=== PATIENT | female | born 1965 | race Caucasian/White ===

== ENCOUNTER → 2017-02-18 | Outpatient (CLI) | payer OTHER ==
[~2017-02-18] MED LIST: ASPI81TA28 PO; ATEN25TA PO; CHOL1000 PO; CHOL100027 PO; CYCL10TA6 PO; GLC/500 PO; HYDR25TA4 PO; LISI-461 PO; MULT-506 PO; MULT-513 PO; MULT-580 PO; NAPR-1169 PO; OMEGCAP2 PO; OXYC1TAB3 PO
[2017-02-18 09:43] LABS: BASO % 0.5 %; BASO ABS # 0.04 K/uL (0-0.2); COMPLETE YES; EOS % 4.9 %; HEMATOCRIT 42.7 % (37-47); IG% 0.6 %; LYMPH % 37.9 %; LYMPH ABS # 2.94 K/uL (1.2-3.4); MEAN CORPUSCULAR HEMOGLOBIN 28.8 pg (25-34); MEAN CORPUSCULAR HGB CONC 32.3 g/dl (32-36); MEAN PLATELET VOLUME 10.2 fL (7.4-10.4); MONO % 8.8 %; NEUT % 47.3 %; PLATELET COUNT 249 K/uL (130-400); WHITE BLOOD COUNT 7.76 K/uL (4.8-10.8)
[2017-02-18 09:52] LABS: BLOOD UREA NITROGEN 27 mg/dl (7-18); BUN/CREATININE RATIO 45.5 (10-20); CALCIUM 8.8 mg/dl (8.5-10.1); CARBON DIOXIDE 29 mmol/L (21-32); CHLORIDE 108 mmol/L (98-107); CHOLESTEROL 225 mg/dl (0-200); GLUCOSE 91 mg/dl (70-99); POTASSIUM 4.1 mmol/L (3.5-5.1); SODIUM 143 mmol/L (136-145); TRIGLYCERIDES 193 mg/dl (0-150); VERY LOW DENSITY LIPOPROT CALC 39 mg/dl
[2017-02-18 10:03] LABS: CHOLESTEROL/HDL RATIO 4.9; HDL CHOLESTEROL 46 mg/dl; LDL CHOLESTEROL CALCULATED 140 mg/dl
== END | disposition home or self-care (01) ==
LOC: C.LAB1850 07:06
PROVIDERS: ATTEND Internal Medicine
DX: I10 Essential (primary) hypertension (principal); Z86.39 Personal history of other endocrine, nutritional and metabolic disease; G47.30 Sleep apnea, unspecified; E78.5 Hyperlipidemia, unspecified

== ENCOUNTER → 2017-02-27 | Outpatient (CLI) | payer OTHER ==
--- NOTE | 2017-02-27 15:09 | MAMMOGRAPHY REPORT ---
BILATERAL DIGITAL SCREENING MAMMOGRAM TOMOSYNTHESIS WITH CAD: 02/27/2017 CLINICAL HISTORY: Routine screening. Patient has no complaints. TECHNIQUE: Breast tomosynthesis in addition to standard 2D mammography was performed. Current study was also evaluated with a Computer Aided Detection (CAD) system. COMPARISON: Comparison is made to exams dated: 02/26/2016 mammogram, 02/22/2015 mammogram, 01/26/2014 mamm ogram, 01/24/2013 mammogram - [facility], 03/27/2009, and 03/20/2009. BREAST COMPOSITION: There are scattered areas of fibroglandular density in both breasts. FINDINGS: No suspicious masses, calcifications, or areas of architectural distortion are noted in ei ther breast. There has been no significant interval change compared to prior exams. Bilateral benign -appearing calcifications are stable compared to prior exams. IMPRESSION: ACR BI-RADS CATEGORY 2: BENIGN There is no mammographic evidence of malignancy. A 1 year screening mammogram is recommended. The pa tient will receive written notification of the results. Approximately 10% of breast cancers are not detected with mammography. A negative mammographic report should not delay biopsy if a clinically suggestive mass is present. Deborah Montes M.D. /:02/27/2017 12:41:36 Residential Real Estate Appraiser: Danielle Ross, [facility] letter sent: Normal 1/2 BI-RADS Code: ACR BI-RADS Category 2: Benign
== END | disposition home or self-care (01) ==
LOC: C.MAMM 09:12
PROVIDERS: ATTEND Internal Medicine
DX: Z12.31 Encounter for screening mammogram for malignant neoplasm of breast (principal)

== ENCOUNTER 2017-04-03 18:54 | Emergency (ER) | payer OTHER ==
[~2017-04-03] VITALS: Ht 165.1 cm; Wt 94.4 kg
[~2017-04-03 18:54] MED LIST changes: -ASPI81TA28 PO; -CHOL1000 PO; -CYCL10TA6 PO; -MULT-513 PO; -OXYC1TAB3 PO
[2017-04-03 19:15] VITALS: TEMP 36.4; Ht 165.1 cm; Wt 94.4 kg
[2017-04-03] MEDS ORDERED: OXYCODONE HCL IR 5 MG TAB (IMMEDIATE RELEASE) PO STA (20:09)
[2017-04-03] MEDS ORDERED: NAPR-1169 PO (20:31)
[2017-04-03] MEDS ORDERED: LISI-461 PO (20:31)
[2017-04-03] MEDS ORDERED: CHOL1000 PO (20:31)
[2017-04-03] MEDS ORDERED: CYCL10TA6 PO ×2 (20:31→21:48)
[2017-04-03] MEDS ORDERED: ASPI81TA28 PO (20:31)
[2017-04-03] MEDS ORDERED: MULT-513 PO (20:31)
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
[2017-04-03] MEDS ORDERED: CYCLOBENZAPRINE HCL 10 MG TAB PO STA (21:40)
[2017-04-03] MEDS ORDERED: OXYCODONE IR HOME PACK PO ONE (21:45)
[2017-04-03] MEDS ORDERED: FLEXERIL HOME PACK 10 MG VIAL PO ONE (21:45)
[2017-04-03] MEDS ORDERED: OXYC1TAB3 PO (21:48)
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
[2017-04-03 22:06] VITALS: BP 121/88; PULSE 79; O2SAT 98
== END 2017-04-03 22:07 | disposition home or self-care (01) ==
LOC: C.EDB 18:55 → C.EDD 22:07
DX: S16.1XXA Strain of muscle, fascia and tendon at neck level, initial encounter (principal); V49.40XA Driver injured in collision with unspecified motor vehicles in traffic accident, initial encounter; Y92.488 Other paved roadways as the place of occurrence of the external cause; Y93.89 Activity, other specified; I10 Essential (primary) hypertension; E11.9 Type 2 diabetes mellitus without complications; Z79.82 Long term (current) use of aspirin; Z79.899 Other long term (current) drug therapy

== ENCOUNTER → 2017-06-05 | Outpatient (CLI) | payer OTHER ==
[~2017-06-05] MED LIST changes: +ASPI81TA28 PO; -ATEN25TA PO; +CHOL1000 PO; -CHOL100027 PO; +CYCL10TA6 PO; -GLC/500 PO; -HYDR25TA4 PO; -MULT-506 PO; +MULT-513 PO; -MULT-580 PO; -OMEGCAP2 PO; +OXYC1TAB3 PO
== END | disposition home or self-care (01) ==
LOC: C.PAPS 11:47
PROVIDERS: ATTEND Obstetrics & Gynecology
DX: Z12.4 Encounter for screening for malignant neoplasm of cervix (principal)

== ENCOUNTER → 2017-08-05 | Outpatient (CLI) | payer OTHER | END | disposition home or self-care (01) | LOC: C.LAB1850 15:25 | PROVIDERS: ATTEND Obstetrics & Gynecology | DX: N93.9 Abnormal uterine and vaginal bleeding, unspecified (principal) ==

== ENCOUNTER → 2017-09-02 | Outpatient (CLI) | payer OTHER ==
--- NOTE | 2017-09-02 11:03 | DIAGNOSTIC IMAGING REPORT ---
R KNEES, AP STANDING, L KNEES, AP STANDING CLINICAL HISTORY: Fall. Bilateral knee pain. COMPARISON STUDY: None. FINDINGS: Single standing view of the right knee and a single standing view of the left knee. No fracture or dislocation within the right or left knee. Mild right and moderate left medial cartilage space narrowing. There are associated small marginal osteophytes. Soft tissues appear unremarkable. No radiopaque foreign bodies. IMPRESSION: Mild right and moderate left medial compartment osteoarthritis within the knees. No fracture or dislocation. Electronically signed by: Abhi Whipple M.D. 09/02/2017 11:01 AM Dictated Date/Time: 09/02/2017 10:59 AM
[2017-09-02 12:26] LABS: HEMOGLOBIN A1C 5.5 % (4.5-5.6)
[2017-09-02 12:33] LABS: ALBUMIN 3.8 gm/dl (3.4-5.0); ALT/SGPT 30 U/L (12-78); AST/SGOT 22 U/L (15-37); BLOOD UREA NITROGEN 20 mg/dl (7-18); CALCIUM 8.7 mg/dl (8.5-10.1); CARBON DIOXIDE 30 mmol/L (21-32); CHOLESTEROL 206 mg/dl (0-200); CREATININE 0.63 mg/dl (0.60-1.20); GLUCOSE 107 mg/dl (70-99); POTASSIUM 4.1 mmol/L (3.5-5.1); SODIUM 139 mmol/L (136-145); TOTAL PROTEIN 7.3 gm/dl (6.4-8.2)
[2017-09-02 12:42] LABS: ALKALINE PHOSPHATASE 86 U/L (45-117); LDL CHOLESTEROL CALCULATED 123 mg/dl
== END | disposition home or self-care (01) ==
LOC: C.LAB1850 10:32
PROVIDERS: ATTEND Internal Medicine
DX: T14.8XXA Other injury of unspecified body region, initial encounter (principal); W19.XXXA Unspecified fall, initial encounter; Z86.39 Personal history of other endocrine, nutritional and metabolic disease; I10 Essential (primary) hypertension; M17.0 Bilateral primary osteoarthritis of knee

== ENCOUNTER 2019-08-18 09:44 | Inpatient (IN) ==
--- NOTE | 2019-07-12 10:46 | PAT Medication Instructions ---
Medication Instructions Date of Service July 12, 2019 Home Medications Medication Instructions Recorded metformin 500 mg tablet 500 mg PO BID #60 tab 03/31/19 multivitamin 1 tab PO DAILY naproxen 500 mg tablet 500 mg PO QAM metformin 500 mg tablet 500 mg PO BID aspirin 81 mg PO HS cholecalciferol (vitamin D3) [Vitamin D3] 1,000 unit PO DAILY lisinopril 10 mg PO QAM multivitamin [Uhrf-Tlqs-Onwgr] 2 tab PO DAILY paroxetine HCl 20 mg PO HS vitamin B complex 1 tab PO DAILY ASK your surgeon for instructions naproxen 500 mg tablet 500 mg PO QAM DO NOT take the morning of surgery multivitamin 1 tab PO DAILY metformin 500 mg tablet 500 mg PO BID cholecalciferol (vitamin D3) [Vitamin D3] 1,000 unit PO DAILY lisinopril 10 mg PO QAM multivitamin [Owlz-Mpeh-Wdzja] 2 tab PO DAILY vitamin B complex 1 tab PO DAILY Take evening before surgery metformin 500 mg tablet 500 mg PO BID aspirin 81 mg PO HS paroxetine HCl 20 mg PO HS Other Notes If you have any questions please call us at [phone] or [phone] or [phone] or [phone]
--- NOTE | 2019-07-13 08:33 | Anesthesiology Consultation ---
Date of Service July 13, 2019 Assessment & Plan (1) Encounter for pre-operative examination: - Check BSG AM DOS Chart Review Chart Review: Acceptable Risk for Surgery and Patient seen in Pre Admission Testing Teaching & Discussion Pre-Anesthesia Teaching/Discussion Notes: Instructed NPO after midnight before surgery,except medications with 15 cc of water. Medication instructions provided according to the PAT guidelines. History Surgery Operation Date: 08/18/19 09:20 Proposed Procedures p Left Total Knee Arthroplasty - Joss Cody MD Height/Weight Height: 5 ft 5 in Weight: 111.1 kg Allergies Allergy/AdvReac Type Severity Reaction Status Date / Time grass pollen Allergy Intermediate Hives Verified 07/07/19 15:07 oxycodone AdvReac Mild GI upset Verified 07/12/19 10:44 rosuvastatin AdvReac Mild Leg Verified 07/12/19 10:44 cramping Medications Home Medications Medication Instructions Recorded Confirmed Last Taken multivitamin 1 tab PO DAILY 03/01/19 07/07/19 Unknown naproxen 500 mg tablet 500 mg PO QAM #180 tab 03/01/19 07/07/19 Unknown metformin 500 mg tablet 500 mg PO BID #60 tab 03/31/19 07/07/19 Unknown aspirin 81 mg PO HS 07/07/19 07/07/19 Unknown cholecalciferol (vitamin D3) 1,000 unit PO DAILY 07/07/19 07/07/19 Unknown [Vitamin D3] lisinopril 10 mg PO QAM 07/07/19 07/07/19 Unknown multivitamin-folic acid-biotin 2 tab PO DAILY 07/07/19 07/07/19 Unknown [Kfcj-Iujc-Fuqtx (co-[id number])] paroxetine HCl 20 mg PO HS 07/07/19 07/07/19 Unknown vitamin B complex 1 tab PO DAILY 07/07/19 07/07/19 Unknown Past Medical History Medical History Anxiety and depression Bulging lumbar disc Dry eye syndrome eyes do not completely close during sleep GERD (gastroesophageal reflux disease) rare Hyperlipidemia Hypertension Morbid obesity Osteoarthritis Sleep apnea no device Temporomandibular joint disorder no locking Type 2 diabetes mellitus NIDDM Exercise / Class Metabolic Activity III < 4 Walking/Shop/Light housework Past Family History Family History Mother Family history of diabetes mellitus Father Family history of diabetes mellitus Grandmother Family history of diabetes mellitus Other Cervical cancer Depression Hypertension Thyroid disorder Past Surgical History Surgical History Cyst S/P REMOVAL (BUTTOCKS) H/O hand surgery LEFT HAND THUMB SURGERY H/O oral surgery 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7) H/O shoulder surgery RT SHOULDER History of bilateral tubal ligation History of carpal tunnel release RT/LEFT History of colonoscopy History of tonsillectomy and adenoidectomy History of tubal ligation Past Anesthesia History No Hx of Anesthesia Complications and No Family Hx of Anesthesia Complications History of PONV No Hx of PONV and No Hx of Motion Sickness Social History Smoking Status: Never smoker Do You Dip or Chew Tobacco: No Hx Alcohol Use: Yes alcohol intake frequency: holidays/special occasions only Hx Substance Use: No substance use type: does not use Review of Systems Rare reflux. Patient denies chest pain, shortness of breath, cough, wheezing, palpitations. Physical Exam Vital Signs VITALS BP 129/84 P 75 TEMP 98.2 SP02 95%RA RESP 16 PHYSICAL Full neck and c-spine range of motion. Full TMJ range of motion. TMD 3 finger breaths Mallampati Score 3 Dentition: intact Lungs: clear throughout to auscultation Cardiac: regular rate and rhythm, no murmurs noted Spine: normal Carotid arteries: negative bruit Extremities: no edema Testing Laboratory Results 07/13/19 09:01 07/13/19 09:01 PT 10.0 Seconds (9.0-12.0) 07/13/19 09:01 INR 1.0 (0.9-1.1) 07/13/19 09:01 APTT 25.0 Seconds (21.0-31.0) 07/13/19 09:01 Hemoglobin A1c 7.5 % (4.5-5.6) H 07/13/19 09:01 Blood Type O Positive 07/13/19 09:01 Antibody Screen NEGATIVE 07/13/19 09:01 *Surgeon office made aware of elevated hgba1c* Electrocardiogram Date: 07/13/19 NSR at 76bpm. *unconfirmed report* Chest X-Ray Date: 07/13/19 Findings: + NAD Stress Test Date: 11/20/15 Type: exercise LVEF 55%. 100% MPHR. 8.1 METS. No echographic segmental wall motion changes/stress EKG changes concerning for ischemia. Mild cLVH. Mild MR.
--- NOTE | 2019-07-13 09:34 | XRay Report ---
XR chest Pre-admission PA/Lat HISTORY: 54 years-old Female pat preoperative exam. No acute chest complaints COMPARISON: Chest radiograph 01/27/2018 TECHNIQUE: PA and lateral views of the chest FINDINGS: Cardiomediastinal and hilar silhouettes are within normal limits. There is no pneumothorax, pleural e ffusion, focal airspace consolidation or overt pulmonary edema. Degenerative changes of the shoulders and spine. The bones appear grossly intact. IMPRESSION: No acute process. The above report was generated using voice recognition software. It may contain grammatical, syntax o r spelling errors. Electronically signed by: He Vega M.D. 07/13/2019 9:33 AM
[2019-07-13 11:14] LABS: Basophils # (auto) 0.03 K/uL (0-0.2); Basophils % (auto) 0.3 %; Eosinophils # (auto) 0.22 K/uL (0-0.5); Eosinophils % (auto) 2.3 %; Hematocrit (blood only) 45.3 % (37-47); Hemoglobin 14.5 g/dL (12.0-16.0); Immature Granulocytes # (auto) 0.04 K/uL (0.00-0.02); Immature Granulocytes % (auto) 0.4 %; Lymphocytes % (auto) 20.8 %; Mean Corpuscular Hemoglobin 28.9 pg (25-34); Mean Corpuscular Volume 90.2 fL (80-100); Mean Platelet Volume 10.7 fL (7.4-10.4); Monocytes # (auto) 0.69 K/uL (0.11-0.59); Monocytes % (auto) 7.2 %; Neutrophils # (auto) 6.63 K/uL (1.4-6.5); Platelet Count 255 K/uL (130-400); RDW Coefficient of Variation 12.8 % (11.5-14.5); RDW Standard Deviation 42.3 fL (36.4-46.3); Red Blood Count 5.02 M/uL (4.2-5.4); White Blood Count 9.61 K/uL (4.8-10.8)
[2019-07-13 11:21] LABS: BUN Creatinine Ratio 24.9 (10-20); Calcium 9.2 mg/dl (8.5-10.1); Creatinine Clr Calc Pharmacy 113.8 ml/min; Est GFR (African American) 112.7; Est GFR (Non-African American) 97.2; Potassium 4.2 mmol/L (3.5-5.1)
[2019-07-13 11:22] LABS: Estimated Average Glucose 169 mg/dl; Hemoglobin A1C 7.5 % (4.5-5.6)
[2019-07-13 11:29] LABS: Partial Thromboplastin Ratio 0.9
--- NOTE | 2019-08-13 12:30 | History and Physical Report ---
DATE OF ADMISSION: 08/18/2019 CHIEF COMPLAINT: Left knee pain. HISTORY OF PRESENT ILLNESS: The patient is a 54-year-old female who presents for surgical treatment of her left knee primarily. She has got a long history of bilateral knee pain and discomfort treated by my partner Dr. Martinez. She was actually scheduled for surgery in the past, but was denied due to lack of physical therapy. She is now down through 2 months of physical therapy and feels this did get her leg a little bit stronger, but has not helped it with the pain. Left knee has become more painful than the right. She has got some chronic back issues to it. She is having difficulty managing, but cannot exercise due to her knee pain. She would like to have knee replacement surgery. She has a limited walking tolerance. She has pain with exercise which limits her. She has nighttime pain. PAST MEDICAL HISTORY: 1. Hypertension. 2. Diabetes x5 years. 3. Sleep apnea. 4. Low back pain/sciatica. 5. Kidney stones. 6. Obesity with BMI of 41. PAST SURGICAL HISTORY: Include: 1. Bilateral carpal tunnel release. 2. Tonsillectomy. 3. Right shoulder surgery. ALLERGIES: CRESTOR AND OXYCODONE. Causes nausea. CURRENT MEDICATIONS: Include 1. Naproxen. 2. Multivitamin. 3. Vitamin D3. 4. Low dose aspirin. 5. Paroxetine. 6. Metformin. SOCIAL HISTORY: A 54-year-old female who lives in [place]. She does not smoke. FAMILY HISTORY: Noncontributory. REVIEW OF SYSTEMS: Significant for diabetes. Denies any current chest pain or shortness of breath. No history of DVT or PE. No known bleeding problems. PHYSICAL EXAMINATION: GENERAL: Shows a pleasant, healthy, middle-aged female. Looks to be in pretty good health. HEENT: Benign. NECK: Supple, no lymphadenopathy. LUNGS: Clear to auscultation. HEART: Has a regular rate and rhythm. ABDOMEN: Soft, nontender, nondistended. EXTREMITIES: Grossly neurovascularly intact except as follows: Examination of both knees reveals the patient ambulates independently. Examination of the right knee reveals varus alignment. She is tender over the medial joint line. Trace knee effusion. Range of motion 0-130. No instability. Examination of the left knee reveals varus alignment. She has got bony hypertrophy medially. Tender over the medial joint line. Range of motion is full extension to 125 degrees of flexion. No instability. No pain with hip motion. X-RAYS: X-rays of both knees were reviewed. Shows advanced bilateral knee DJD. Left side is a bit worse than the right. It primarily involves the medial compartment. ASSESSMENT: A 54-year-old female with long history of bilateral knee pain and discomfort consistent with degenerative joint disease which has become less responsive to conservative treatment. She would like to have her left knee replaced. PLAN: We are going to take her to the operating room and do a left total knee replacement. She has been through therapy that was acquired by insurance. Has not really helped much. The risks and benefits of left total knee replacement were explained to the patient including but not limited to DVT, PE, , infection, neurological injury, vascular injury, bleeding problem, pain, limited range of motion, stiffness, failure to relieve symptoms, incomplete relief of symptoms, need for further surgery in future, fracture, leg length inequality, nerve palsy, persistent pain, incomplete relief of symptoms, etc. The patient understands and desires to proceed. Informed consent was obtained. I did talk to her that this is not going to relief her sciatica type symptoms. She is aware of that. We did talk about holding her metformin the morning of surgery and Aleve 10 days preop. We will use insulin sliding scale coverage to cover in the hospital. She is going to be discharged home using [facility] home health program. EVE
[~2019-08-18 09:44] MED LIST changes: +ACETAMINOPHEN 500 MG TAB PO SCH; -ASPI81TA28 PO; +BUPIVACAINE 0.25% 30 ML VIAL ONE; +BUPIVACAINE 0.5 % 5 MG/1 ML PF 10ML VIAL ONE; +BUPIVACAINE LIPOSOME/PF 266 MG, BUPIVACAINE/EPINEPHRINE 50 ML, SODIUM CHLORIDE 0.9% 30 ... INFIL SCH; +CEFAZOLIN 2000MG 2,000 MG/15 ML SYR IV SCH; -CHOL1000 PO; -CYCL10TA6 PO; +FAMOTIDINE 20 MG TAB PO SCH; +GABAPENTIN 900 MG DOSE PO SCH; -LISI-461 PO; +LR 500ML BOLUS, THEN 15ML/HR IV SCH; +LR 60ML/HR IV SCH; +METOCLOPRAMIDE HCL 10 MG TABLET PO SCH; -MULT-513 PO; -NAPR-1169 PO; -OXYC1TAB3 PO; +SCOPOLAMINE 1.5 MG TDSY TD SCH; +TRANEXAMIC ACID 1,000 MG **IV Intra-op IV SCH
[2019-08-18] MEDS ORDERED: TRANEXAMIC ACID / 0.7% NACL 1000MG/100ML BAG IV ONE (10:43)
--- NOTE | 2019-08-18 11:20 | History & Physical Bridge Note ---
Date of Service August 18, 2019 History & Physical Bridge Note I have examined the patient, reviewed the History & Physical and in the interval since the performance of the History & Physical I have noted the following changes of clinical significance: no changes noted
[2019-08-18] MEDS ORDERED: fentaNYL citrate 100 MCG/2 ML VIAL ONE (12:04)
[2019-08-18] MEDS ORDERED: MIDAZOLAM HCL 1 MG/ML 2ML VIAL ONE ×3 (12:04→14:12)
[2019-08-18] MEDS ORDERED: BUPIVACAINE/EPINEPHRINE 0.25% 1:200,000 30 ML VIAL ONE (12:42)
[2019-08-18] MEDS ORDERED: BACITRACIN INJ 50,000 UNIT VIAL ONE (12:43)
[2019-08-18] MEDS ORDERED: SODIUM CHLORIDE 0.9% PF 50 ML VIAL ONE (12:43)
[2019-08-18] MEDS ORDERED: BUPIVACAINE LIPOSOME 1.3% 266 MG/20 ML VIAL ONE (12:43)
[2019-08-18] MEDS ORDERED: ePHEDrine sulfate 50 MG/ML AMP IV PRN (13:11)
[2019-08-18] MEDS ORDERED: ONDANSETRON INJ 2 MG/ML 2 ML VIAL IV PRN ×2 (13:11→16:07)
[2019-08-18] MEDS ORDERED: fentaNYL citrate 100 MCG/2 ML VIAL IV PRN (13:11)
[2019-08-18] MEDS ORDERED: ATROPINE SULFATE 0.1 MG/ML 10ML SYR IV PRN (13:11)
[2019-08-18] MEDS ORDERED: PROPOFOL IV EMULSION 10 MG/ML 20 ML VIAL IV ONE ×3 (13:19)
[2019-08-18] MEDS ORDERED: PHENYLEPHRINE 100MCG/ML 5ML SYR ONE (13:25)
--- NOTE | 2019-08-18 14:52 | Post Operative Brief Note ---
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 left knee bone and tissue Drains Casanova Catheter (16 [place] island[place] catheter) Anesthesia Type Spinal MAC Complications none Disposition Accompanied Patient To Recovery: No Disposition: Recovery Room
--- NOTE | 2019-08-18 15:10 | Operative Report ---
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 She had extensive grade 4 [id number] disease of the medial femoral condyle medial tibial plateau. She had fairly extensive grade 4 disease of the patellofemoral joint. The lateral compartment was fairly well-preserved. Moderate-sized joint effusion. Osteophy geraldine were found in the medial and posterior medial compartment. Fluids 1000 cc Specimens Left knee sent for pathology. Drains None. Anesthesia Type Spinal MAC Complications none Disposition Accompanied Patient To Recovery: No Disposition: Recovery Room Indications Patient is a 54-year-old female is had a long history of bilateral knee pain discomfort left side greater than the right. She been through extensive conservative treatment which is been a lot less successful recently. She been through extensive conservative treatment including injections and insurance company mandated physical therapy which is made her knee stronger but has not helped at all with the pain. She continues to be debilitated by knee pain. She elected proceed with left total knee arthroplasty. Description of Procedure Operative implants consist of: 1. Biomet Vanguard size 62.5 left posterior bifemoral component. 2. Biomet size 71 tibial tray. 3. 10 mm posterior bite polyethylene insert. 4. 31 x 8 all poly-patella. Patient taken to the operating room identified and placed on the operating table supine position protectors were properly padded. IV antibiotics provided by anesthesia team. Spinal anesthetic and abductor canal block had provided holding area. Casanova catheter was placed in sterile fashion. Left thigh tip was then placed in the left lower extremities and prepped and draped in usual sterile fashion. The left leg was elevated and exsanguinated with use of an Esmarch interspace at 300 mmHg. An anterior posterior left knee was then performed the longitudinal incision centered over the patella. Sharp dissection was carried through subcutaneous tissue down below the extensor mechanism. A medial parapatellar arthrotomy incision was made. Some subperiosteal dissection was carried out medially but the fat pad was directed beneath patella tendon. Lateral patellofemoral ligament was released. The patella was subluxated laterally and the knee was flexed. The osteophytes were taken off the distal femur. The ACL PCL were then released from distal femur the tibia subluxated anteriorly. External tibial alignment jig was then placed in the interface the tibia and adjusted 14 mm medially. Proximal tibial cut was made to remove about 2 to 3 mm of bone from the most efficient aspect medial tibial plateau. Tibia sized to a size 71. Attention drawn the femur. The distal femur was entered with a sharp drop with intramedullary canal was suction. A left 5 degree valgus cutting guide was placed. This femoral cutting block was pinned in place but distal femoral cut was made to take an additional 3 mm of bone off the distal femur. The femur was then sized to a size 60 2.5P we did downsize this slightly. The AP cutting block was pinned parallel to the epicondylar axis which was 5 degrees of external rotation. The anterior cut, anterior chamfer, posterior cut, posterior chamfer cuts were made. Box cutting guide was placed and adjusted slightly lateral and the box cut was made. The knee was flexed. The remnants of the medial lateral menisci were excised. The osteophytes were taken off the posterior aspect of the femur. Trial femoral component was placed. The tibial tray was pinned in maximum external rotation and the drill and stem punch were used to create defect in the proximal tip for the tibial tray. The knee was then trialed and the 10 mm insert fit most appropriately. Attention drawn the patella. The patella was cleaned of all soft tissues. Patella thickness measured 22 mm in thickness was cut down to 13 but was sized to a size 31 patella. Locals were drilled for 31 patella. Lateral osteophytes removed. Patella button was placed. Knee was taken through range of motion patella tracked nicely with no thumbs test. Attention drawn to place the permanent components. All trial components were removed. Bone plug was placed in the disc femur limit blood loss. A double batch Palacos G cement was mixed. Biomet Vanguard size 62.5 left posterior bifemoral component, Biomet size 71 tibial tray, 10 mm posterior bite polyethylene insert, and a 31 x 8 all poly-patella were then cement placed. Knee was brought into full extension total cement hardened. Final cement check was then performed. The zelalem-capsular tissues were injected with total of 100 cc of combination of 20 cc of Exparel, 30 cc normal saline, 50 cc of quarter percent Marcaine with epinephrine. Patient did receive 1 g of tranexamic acid. The tourniquet was then let down for final tourniquet time 56 minutes. Hemostasis assured use electrocautery. The extensor mechanism closed with combination 1 PDS suture #1 Vicryl suture in [id number] fashion. The tensor mechanism was checked and found to be intact the subcutaneous tissue then closed with 2 Dexon suture in buried knot fashion skin was closed skin abigail. Leg was then cleaned dried a sterile dressing composed of Xeroform, 4 x 4's, sterile cast padding Brad bandage were applied. Patient then transferred to the recovery room in stable condition. Patient tolerated the procedure well there are no complications. I attest to the content of the Intraoperative Record and any orders documented therein. Any exceptions are noted below.
--- NOTE | 2019-08-18 15:40 | Anesthesiology Progress Note ---
Date of Service August 18, 2019 Anesthesia Post Procedure Vital Signs Vital Signs: Temp Pulse Resp BP Pulse Ox 08/18/19 15:25 36.5 C 74 16 114/62 95 08/18/19 15:15 75 16 122/64 99 08/18/19 15:05 73 18 126/63 100 08/18/19 14:56 36.6 C 86 14 119/71 99 08/18/19 10:11 36.6 C 83 14 141/85 H 97 Transfer of Care Handoff Completed per policy Notes Mental Status: alert / awake / arousable and participated in evaluation Nausea / Vomiting: adequately controlled Pain: adequately controlled Airway Patency, RR, SpO2: stable & adequate BP & HR: stable & adequate Hydration State: stable & adequate Neuraxial Anesthesia: was administered and sensory block is resolving Anesthetic Complications: no major complications apparent
--- NOTE | 2019-08-18 15:40 | XRay Report ---
XR knee LT 1 or 2V routine CLINICAL HISTORY: Surgical Post Op COMPARISON: Knee radiographs April 21, 2019. FINDINGS: Alignment of the total left knee arthroplasty is anatomic. There is no fracture or unexpec lázaro radiopaque foreign body. There are skin abigail. IMPRESSION: Expected findings following total left knee arthroplasty. ACT 112: Negative or not required by law. Electronically signed by: Miguel Angel Mckinney M.D. 08/18/2019 3:39 PM
[2019-08-18] MEDS: SODIUM CHLORIDE 0.9% 1000ML 1,000 ML IV SCH ×2 (16:00→23:50)
[2019-08-18] MEDS ORDERED: NALOXONE HCL 0.4 MG/1 ML VIAL/CARP IV PRN (16:07)
[2019-08-18] MEDS ORDERED: DEXTROSE 50% 50 ML SYRINGE IV PRN (16:07)
[2019-08-18] MEDS ORDERED: GLUCAGON FOR INJ 1 MG VIAL SQ PRN (16:07)
[2019-08-18] MEDS ORDERED: METOCLOPRAMIDE HCL INJ 5 MG/ML 2 ML VIAL IV PRN (16:07)
[2019-08-18] MEDS ORDERED: GLUCOSE 10 TABS/TUBE PO PRN (16:07)
[2019-08-18] MEDS ORDERED: HYDROmorphone INJ 0.5 MG/0.5 ML SYR IV PRN (16:07)
[2019-08-18] MEDS ORDERED: bisacodyL 10 MG SUPP PR PRN (16:07)
[2019-08-18] MEDS ORDERED: CARBOHYDRATES FOR HYPOGLYCEMIA PO PRN (16:07)
[2019-08-18] MEDS ORDERED: MAGNESIUM HYDROXIDE SUSP 30 ML UDC PO PRN (16:07)
[2019-08-18] MEDS ORDERED: GLUCOSE 40% GEL 15 GM TUBE PO PRN (16:07)
[2019-08-18] MEDS ORDERED: ALUMINUM/MAGNESIUM SUSP 30 ML UDC PO PRN (16:07)
[2019-08-18] MEDS ORDERED: PHARMACY GLYCEMIC MGMT CONSULT PRN (16:39)
[2019-08-18] MEDS: CHECK SCOPOLAMINE PATCH PLACEMENT SCH (17:41)
[2019-08-18] MEDS: KETOROLAC 30 MG/ML VIAL IV SCH ×2 (17:42→22:12)
[2019-08-18] MEDS: FERROUS GLUCONATE 324 MG TAB PO SCH (17:43)
[2019-08-18] MEDS: ASCORBIC ACID 500 MG TAB PO SCH (17:43)
[2019-08-18] MEDS: INSULIN ASPART 100 UNITS/ML 3 ML PEN SC SCH ×3 (17:46→23:56)
--- NOTE | 2019-08-18 18:45 | Progress Note ---
DATE: 08/18/2019 SUBJECTIVE: A 54-year-old female postop from a left knee replacement. She is doing pretty well. Just starting to get the feeling back in her leg. No pain yet. No chest pain or shortness of breath. Not feeling dizzy or lightheaded. OBJECTIVE: VITAL SIGNS: Temperature is 36.4. Vital signs stable. GENERAL: Shows a pleasant, middle-aged female. She is sitting up in her bed. She is eating her dinner. She is talking to her . Looks comfortable. LUNGS: Clear to auscultation. HEART: Has a regular rate and rhythm. ABDOMEN: Soft, nontender, nondistended. EXTREMITIES: Grossly neurovascularly intact except as follows: Examination of the left lower extremity reveals the leg to be well aligned. Toes are pink with brisk refill and good distal pulse. She is just starting to get the motor function in her toes. She can slightly flex and extend her toes. X-RAYS: X-rays of the left knee from recovery room reviewed. It shows cemented posterior stabilized total knee arthroplasty. Components looked to be in good position. No signs of problems. ASSESSMENT: A 54-year-old female postop from a left knee replacement, doing pretty well. Pain seems to be controlled. Her nerve function is returning. PLAN: 1. DVT prophylaxis including thigh-high TEDs, SCDs, and aspirin twice a day. 2. PT/OT. Weight bear as tolerated. Left total knee protocol. 3. Pain control, doing pretty well with current pain regimen. I was asked to adjust her meds as the spinal wears off. 4. IV antibiotics x24 hours. 5. Disposition: Plan to discharge to home with some home health once adequately recovered and medically stable.
[2019-08-18] MEDS: OXYCODONE HCL IR 5 MG TAB (IMMEDIATE RELEASE) PO PRN (20:04)
[2019-08-18] MEDS: CEFAZOLIN 2000MG 2,000 MG/15 ML SYR IV SCH (20:44)
[2019-08-18] MEDS: TAPENTADOL HCL ER 50 MG TABCR PO SCH (20:45)
[2019-08-18] MEDS: SENNA 8.6 MG TAB PO SCH (20:46)
[2019-08-18] MEDS: PARoxetine HCl 20 MG TAB PO SCH (20:46)
[2019-08-18] MEDS: DOCUSATE SODIUM 100 MG CAP PO SCH (20:46)
[2019-08-18] MEDS: ASPIRIN 81 MG ECTAB PO SCH (20:47)
[2019-08-18] MEDS: ACETAMINOPHEN 500 MG TAB PO SCH (20:48)
[2019-08-18] MEDS ORDERED: TRANEXAMIC ACID / 0.7% NACL 1,000 MG/100 ML BAG IV SCH (20:55)
[2019-08-18] MEDS ORDERED: LANTUS PER UNIT CHARGE SQ ONE (21:00)
[2019-08-19] MEDS: CHECK SCOPOLAMINE PATCH PLACEMENT SCH
[2019-08-19] MEDS: INSULIN ASPART 100 UNITS/ML 3 ML PEN SC SCH ×5 (04:18→21:15)
[2019-08-19] MEDS: CEFAZOLIN 2000MG 2,000 MG/15 ML SYR IV SCH (05:07)
[2019-08-19] MEDS: KETOROLAC 30 MG/ML VIAL IV SCH ×4 (05:08→22:54)
[2019-08-19 05:16] LABS: Hematocrit (blood only) 35.2 % (37-47); Hemoglobin 10.9 g/dL (12.0-16.0); Mean Corpuscular Hemoglobin 28.3 pg (25-34); Mean Corpuscular Volume 91.4 fL (80-100); Mean Platelet Volume 9.8 fL (7.4-10.4); Platelet Count 198 K/uL (130-400); RDW Coefficient of Variation 12.7 % (11.5-14.5); RDW Standard Deviation 42.3 fL (36.4-46.3); Red Blood Count 3.85 M/uL (4.2-5.4)
[2019-08-19 05:40] LABS: BUN Creatinine Ratio 17.1 (10-20); Calcium 7.7 mg/dl (8.5-10.1); Creatinine Clr Calc Pharmacy 106.1 ml/min; Est GFR (African American) 105.5; Potassium 4.1 mmol/L (3.5-5.1)
[2019-08-19] MEDS: ACETAMINOPHEN 500 MG TAB PO SCH ×3 (06:35→21:14)
--- NOTE | 2019-08-19 08:21 | Progress Note ---
DATE: 08/19/2019 SUBJECTIVE: A 54-year-old female postop day 1 from a left knee replacement. She is doing pretty well. Had a pretty good night. Pain is controlled. No chest pain or shortness of breath. Not feeling dizzy or lightheaded. OBJECTIVE: VITAL SIGNS: Temperature 37.0. Vital signs stable. GENERAL: Shows a pleasant, middle-aged female. She is lying in bed, looks pretty comfortable. EXTREMITIES: Examination of the left leg reveals the dressing to be clean, dry and intact. She can dorsiflex and plantarflex her foot appropriately. She has got brisk refill. Sensory exam is intact to light touch. LABORATORY DATA: Hemoglobin is 10.9. Hematocrit 35.2. Electrolytes are stable. ASSESSMENT: A 54-year-old female postop day 1 from a left knee replacement, doing pretty well. Pain is controlled. She is neurologically intact. PLAN: 1. DVT prophylaxis including thigh-high TEDs, SCDs, and aspirin twice a day. 2. PT/OT. Weight bear as tolerated. Left total knee protocol. 3. Pain control, doing pretty well with current pain regimen. 4. Disposition: Plan to discharge to home with some home health once adequately recovered and medically stable.
[2019-08-19] MEDS: ASCORBIC ACID 500 MG TAB PO SCH ×2 (08:37→16:58)
[2019-08-19] MEDS: VITAMIN B COMPLEX TAB PO SCH (08:37)
[2019-08-19] MEDS: FERROUS GLUCONATE 324 MG TAB PO SCH ×2 (08:37→16:58)
[2019-08-19] MEDS: CHOLECALCIFEROL 1,000 UNITS TAB PO SCH (08:37)
[2019-08-19] MEDS: ASPIRIN 81 MG ECTAB PO SCH ×2 (08:38→20:26)
[2019-08-19] MEDS: MULTIVITAMIN TAB PO SCH (08:38)
[2019-08-19] MEDS: lisinopriL 10 MG TAB PO SCH (08:38)
[2019-08-19] MEDS: DOCUSATE SODIUM 100 MG CAP PO SCH ×2 (08:38→20:26)
[2019-08-19] MEDS: TAPENTADOL HCL ER 50 MG TABCR PO SCH ×2 (08:46→20:25)
[2019-08-19] MEDS: OXYCODONE HCL IR 5 MG TAB (IMMEDIATE RELEASE) PO PRN ×2 (08:47→15:24)
[2019-08-19] MEDS ORDERED: LANTUS PER UNIT CHARGE SQ SCH ×2 (09:00→21:00)
[2019-08-19] MEDS ORDERED: MULTIVITAMIN TAB PO SCH (09:00)
--- NOTE | 2019-08-19 12:26 | Pharmacy Report ---
Glycemic Control Consultation - Date of Service August 19, 2019 - Scope Scope: Glycemic Pharmacist consulted by Dr Cody on 08/18 for glycemic control and to write orders per [facility] inpatient glycemic control protocol - Objective Weight: 108.2 kg Accuchecks BSG (last 24hrs): 08/18/19 08/18/19 08/18/19 15:01 17:16 20:53 Glucose POC Glucose 120 H 136 H 150 H 08/18/19 08/19/19 08/19/19 23:53 04:10 04:59 Glucose 120 H POC Glucose 192 H 112 H 08/19/19 08/19/19 08:01 11:53 Glucose POC Glucose 153 H 117 H Laboratory Data (last 24hrs): 08/19/19 04:59 Potassium 4.1 Carbon Dioxide 29 Anion Gap 4.0 Creatinine 0.75 Est Cr Clr Drug Dosing 106.1 HbA1c: Hemoglobin A1c 7.5 % (4.5-5.6) H 07/13/19 09:01 - Recent Pertinent Medications Outpatient Anti-diabetic Regimen: * Metformin 500 mg BID * A1c = 7.5 % 07/13/19 The patient is currently receiving: * Basal insulin: Lantus 10 units x 1 dose last night * Correctional Insulin: Novolog Correction per scale ACHS Goal Range: Low 110 mg/dL - High 140 mg/dL Correction Factor: 20 mg/dL/unit * Prandial insulin: Per carb ratio of 1 unit per 7 grams CHO consumed Risk Factors for Insulin Resistance: * Recent Surgery: POD 1 s/p L TKA * Diet: t2dm - Assessment & Plan Assessment & Plan: ASSESSMENT: * 54 y/o female admitted s/p L TKA. Metformin was placed on hold and basal + bolus insulin therapy appropriately initiated. She did not receive any steroids perioperatively. * Today she is POD 1 and BSGs are well controlled. PO intake adequate and SCr stable; therefore, will transition back to metformin this evening. PLAN FOR INPATIENT GLYCEMIC CONTROL: * Resume metformin 500 mg BID with dinner * Basal insulin * Lantus 10 units this AM * Lantus 10 units this evening only if BSG 150 mg/dL or above * Bolus insulin * NovoLog per scale ACHS or Q6hrs while NPO * Goal Range: Low 110 mg/dL - High 140 mg/dL * Correction Factor: 20 mg/dL/unit * Nutritional / Prandial insulin per carb ratio of 1 unit per 7 grams CHO consumed (remove carb ratio starting with dinner) Discharge Recommendations: * A1c of 7.5% on 07/13/19 is at/near goal for patient's age * Continue metformin 500 mg BID on discharge Thank you.
[2019-08-19] MEDS: METFORMIN HCL 500 MG TAB PO SCH (16:58)
[2019-08-19] MEDS: SENNA 8.6 MG TAB PO SCH (20:26)
[2019-08-19] MEDS: PARoxetine HCl 20 MG TAB PO SCH (20:26)
[2019-08-20] MEDS: ACETAMINOPHEN 500 MG TAB PO SCH (05:16)
[2019-08-20] MEDS: KETOROLAC 30 MG/ML VIAL IV SCH ×2 (05:16→10:03)
[2019-08-20 06:44] VITALS: BP 136/79; PULSE 84; TEMP 98.6; O2SAT 94
[2019-08-20] MEDS: MULTIVITAMIN TAB PO SCH (07:31)
[2019-08-20] MEDS: ASPIRIN 81 MG ECTAB PO SCH (07:31)
[2019-08-20] MEDS: VITAMIN B COMPLEX TAB PO SCH (07:31)
[2019-08-20] MEDS: TAPENTADOL HCL ER 50 MG TABCR PO SCH (07:31)
[2019-08-20] MEDS: FERROUS GLUCONATE 324 MG TAB PO SCH (07:32)
[2019-08-20] MEDS: ASCORBIC ACID 500 MG TAB PO SCH (07:32)
[2019-08-20] MEDS: METFORMIN HCL 500 MG TAB PO SCH (07:32)
[2019-08-20] MEDS: DOCUSATE SODIUM 100 MG CAP PO SCH (07:32)
[2019-08-20] MEDS: CHOLECALCIFEROL 1,000 UNITS TAB PO SCH (07:32)
[2019-08-20] MEDS: lisinopriL 10 MG TAB PO SCH (07:32)
--- NOTE | 2019-08-20 08:09 | Progress Note ---
DATE: 08/20/2019 SUBJECTIVE: A 54-year-old female postop day 2 from a left knee replacement. She is doing pretty well. Had a pretty good night pain kelly. No chest pain or shortness of breath. Not feeling dizzy or lightheaded. OBJECTIVE: VITAL SIGNS: Temperature is 37.0. Vital signs stable. GENERAL: Shows a pleasant, middle-aged female. She is sitting up in bedside chair, looks pretty comfortable. EXTREMITIES: Examination of the left leg reveals the dressing to be clean, dry and intact. No significant drainage. Calf is soft and supple. She is neurologically intact. ASSESSMENT: A 54-year-old female postop day 2 from a left knee replacement, doing pretty well. Pain is controlled. She is neurologically intact. PLAN: 1. DVT prophylaxis including thigh-high TEDs, SCDs, and aspirin twice a day. 2. PT/OT. Weight bear as tolerated. Left total knee protocol. 3. Pain control, doing well with current pain regimen. 4. Disposition: Plan to discharge to home with some home health later today.
[2019-08-20] MEDS: INSULIN ASPART 100 UNITS/ML 3 ML PEN SC SCH (08:14)
== END 2019-08-20 10:37 | disposition home health service (06) | DRG 470 ==
LOC: ASU 09:44 → 3E 14:57